=== PATIENT | male | born 1960 | race Caucasian/White ===

== ENCOUNTER 2020-07-24 12:01 | Outpatient (CLI) | payer OTHER, SELFPAY | END 2020-07-24 12:02 | disposition home or self-care (01) | PROVIDERS: PCP Family Medicine; Visit Provider Internal Medicine Gastroenterology | DX: R19.7 Diarrhea, unspecified (principal) | CPT/HCPCS: 87045; 87046; 87177; 87209; 87324; 87427; 89055 ==

== ENCOUNTER 2023-07-23 16:19 | Emergency (ER) | payer OTHER, SELFPAY ==
[2023-07-23 16:33] VITALS: BP 142/83; PULSE 73; RESP 18; TEMP 36.7; O2SAT 96
--- NOTE | 2023-07-23 16:34 | ED.LOWEXIN ---
HPI - Extremity Injury (Lower) General Chief Complaint: Extremity Injury, Lower Stated Complaint: rt toe injury Source: patient Mode of arrival: ambulatory Limitations: no limitations History of Present Illness HPI Narrative: 62-year-old male presented for complaint of injury to the right little toe 2 days ago. States he stubbed the toe on a vacuum. He endorses pain is mild, but has noticed bruising has worsened since injury. He is taking occasional ibuprofen or aspirin for pain. Denies numbness, tingling, weakness, or decreased range of motion to the toe or foot. He states he needs a work note because he missed work yesterday and today. Related Data Home Medications Medication Instructions Recorded Confirmed lisinopril 10 1 tablet DIRECTED 07/23/23 07/23/23 mg-hydrochlorothiazide 12.5 mg tablet Allergies Allergy/AdvReac Type Severity Reaction Status Date / Time No Known Allergies Allergy Unverified 07/03/14 11:52 Review of Systems Review of Systems: CONSTITUTIONAL: Denies body aches, fever, chills EYES: Denies visual changes ENT: Denies rhinorrhea, congestion CARDIOVASCULAR: Denies chest pain, palpitations, or edema. RESPIRATORY: Denies cough or dyspnea. GASTROINTESTINAL: Denies abdominal pain, nausea, vomiting, or diarrhea. SKIN: Denies rash, itching, or wounds. MUSCULOSKELETAL: Reports 5 right 5th toe pain denies back pain, or myalgia. NEUROLOGIC: Denies headache, numbness, tingling, or weakness. All systems reviewed & are unremarkable except as noted in HPI and below PMFSH Past Medical History Medical History (Updated 07/23/23 @ 16:47 by Fiona Rossi, [place]) Hypertension Comments At time of signature, I have reviewed and agree with nursing past medical, surgical, social and family history unless otherwise noted. Please see nursing chart for further information. There is no relevant family history pertinent to the presenting complaint Exam Narrative: GENERAL: Well-appearing, well-nourished, and in no acute distress. HEAD: Normocephalic, atraumatic. EYES: PERRLA, conjunctivae clear CHEST: Speaks in full sentences. No respiratory distress. HEART: Regular rate and rhythm. Normal and equal peripheral pulses. EXTREMITIES: Right 5th toe with moderate bruising to the proximal phalanx extending to the lateral aspect of the distal metatarsal. Minimally tender with palpation. Foot has normal strength and sensation, normal range of motion. No open wounds, or obvious deformity; alignment normal, pulse palpable and equal bilaterally, skin warm, dry, pink. Capillary refill less than 3 seconds. SKIN: Warm, dry, no rash. NEURO: Alert and oriented x3. PSYCH: Normal mood and affect Course Course Emergency Course: Patient is aware of diagnosis, understands and agrees to treatment plan. Anticipatory guidance given. Patient agrees to follow-up as directed and is aware of reasons to seek care at the emergency department. Portions of this record may have been created with voice recognition software Level of Care: Express Care Visit Vital Signs Vital signs: Reviewed MDM - Extremity Injury (Lower) MDM Narrative Medical decision making narrative: Discussed physical exam findings. Patient declined postop shoe and imaging at this time. He is aware of the risk and possibility of fracture extending into the foot, states I don't think it is fractured. Requesting work note only. Advised supportive measures and signs/symptoms to go to the ER. Pt is appropriate for outpt treatment and f/u. Differential Diagnosis Differential diagnosis: Likely fracture of toe and other (foot fracture, contusion, dislocation) Discharge Plan Discharge Clinical Impression: Pain of toe of right foot Patient Disposition: Home, Self-Care Condition: Stable Instructions: Toe Fracture (ED) Additional Instructions: Recommend the use of a post-op shoe, rest and elevate the right foot Apply ice 15-20
== END 2023-07-23 16:47 | disposition home or self-care (01) ==
PROVIDERS: Emergency Provider Nurse Practitioner Family
DX: M79.674 Pain in right toe(s) (principal); I10 Essential (primary) hypertension
CPT/HCPCS: 99212; G0463